=== PATIENT | male | born 1975 | race Caucasian/White ===

== ENCOUNTER 2025-11-22 08:21 | Emergency (ER) | payer OTHER, SELFPAY ==
--- OUTSIDE RECORDS SUMMARY | 2024-06-30 09:53 | XMS_ITS | Continuity of Care Document ---
Author Organization [employer] [place] Address [address] [place] [address] [place] [phone] Phone Care Team Providers Care Abrasive Grader Name Role Phone Philippe Hurd Unavailable Unavailable Procedures Procedure Date Identified as not an unhealthy alcohol u ser Not identified as unhealthy alcohol via screening Identified as not an unhealthy alcohol u ser Not identified as unhealthy alcohol via screening OT Evaluation Low Complexity Therapeutic Activities Hot or Cold Pack Neuromuscular Re-Ed Therapeutic Activities Neuromuscular Re-Ed Therapeutic Exercise Manual Therapy Hot or Cold Pack Therapeutic Activities Hot or Cold Pack Neuromuscular Re-Ed Neuromuscular Re-Ed Therapeutic Activities Manual Therapy Therapeutic Activities Manual Therapy Neuromuscular Re-Ed Therapeutic Activities Hot or Cold Pack Neuromuscular Re-Ed Progress Note Hot or Cold Pack Manual Therapy Therapeutic Exercise Neuromuscular Re-Ed Therapeutic Activities Therapeutic Activities Neuromuscular Re-Ed Hot or Cold Pack Manual Therapy Therapeutic Exercise Neuromuscular Re-Ed Therapeutic Activities Hot or Cold Pack Manual Therapy Therapeutic Activities Manual Therapy Therapeutic Exercise Neuromuscular Re-Ed Therapeutic Activities Manual Therapy Therapeutic Exercise Neuromuscular Re-Ed Electrical Stimulation Therapeutic Activities Neuromuscular Re-Ed Therapeutic Exercise Manual Therapy Electrical Stimulation Hot or Cold Pack Therapeutic Activities Manual Therapy Therapeutic Exercise Neuromuscular Re-Ed Hot or Cold Pack Progress Note Therapeutic Activities Neuromuscular Re-Ed Therapeutic Exercise Manual Therapy Hot or Cold Pack Therapeutic Activities Electrical Stimulation Hot or Cold Pack Manual Therapy Therapeutic Exercise Neuromuscular Re-Ed Electrical Stimulation Therapeutic Exercise Neuromuscular Re-Ed Therapeutic Activities PT Evaluation Moderate Complexity Advance Directives Directive Yes / No Effective Date File Name No Information Encounters Encounter Description Practice Location Reason(s) For Visit Diagnoses Date Provider Providers Copied on Encounter [facility], [place], [place], [id number], tel:[phone] [place] No Information 4 Toy Paez. . [facility] [facility] [address], [place], [place], [id number], tel:[phone] [place] No Information 4 Toy Paez. . [facility], [place], [place], [id number], tel:[phone] [place] No Information 0 2-202 0 Muehl Juan. [address] [facility], [place], [address], [place]. tel:[phone] Referring Provider: Dany Dover, [address] [facility] [address], [place], [address]. tel:[phone] [place] [address], [address] [place], [place] [address], [place], [place], [id number], [place] tel:[phone] [place] No Information 3 0-202 0 Muehl Juan. [address] [facility], [address], [place], [address], [place]. tel:[phone] Referring Provider: Dany Dover, [address] [facility] [address], [place], [address]. tel:[phone] [place] [address], [address] [place], [place] [address], [place], [place], [id number], [place] tel:[phone] [place] No Information 8-202 0 Muehl Juan. [address] [facility], [address], [place], [address], [place]. tel:[phone] Referring Provider: Dany Dover, [address] [facility] [address], [place], [address]. tel:[phone] [place] [address], [address] [place], [place] [address] [address], [place], [place], [id number], [place] tel:[phone] [place] No Information 2 1-202 0 Muehl Juan. [address] [facility], [address], [place], [address], [place]. tel:[phone] Referring Provider: Dany Dover, [address] [facility] [address], [place], [address]. tel:[phone] [place] [address], [facility] [address], [place], [place], [address], [place] tel:[phone] [place] No Information 4-202 0 Muehl Juan. [address] [facility], [address], [place], [address], [place]. tel:[phone] Referring Provider: [place], [address] [facility] [address], [place], [address]. tel:[phone] [place] [address] [address], [place], [place], [id number], tel:[phone] [place] No Information Oct-0 6-202 0 Muehl Juan. [address] [place] [address], [address], [place], [address], [place]. tel:[phone] Referring Provider: [place], [address] [facility] [address], [place], [address]. tel:[phone] [place] [address], [place], [place], [id number], [place] tel:[phone] [place] No Information Oct-0 1-202 0 Muehl Juan. [address] [place] [address], [address], [place], [address], [place]. tel:[phone] Referring Provider: [place], [address] [facility] [address], [place], [address]. tel:[phone] [place] [address] [address], [place], [place], [id number], [place] tel:[phone] [place] No Information Sep-3 0-202 0 Muehl Juan. [address] [place] [address], [address], [place], [address], [place]. tel:[phone] Referring Provider: [place], [address] [facility] [address], [place], [address]. tel:[phone] [place] [address], [address] [place] [address] 300, [place], [place], [address], [place] tel:[phone] [place] No Information Sep-2 2-202 0 Muehl Juan. [address] [facility], [address], [place], [address], [place]. tel:[phone] Referring Provider: [place], [address] [facility] [address], [place], [address]. tel:[phone] [place] [address], [address] [facility] [address], [place], [place], [id number], [place] tel:[phone] [place] No Information Sep-1 7-202 0 Muehl Juan. [address] [facility], [place], [place], [facility], [place]. tel:[phone] Referring Provider: Dany Rainphy SANTHOSH H, [address] [facility] [address], [place], [address]. tel:[phone] [place] [address] [place] [address], [id number], [place] tel:[phone] [place] No Information Sep-1 6-202 0 Muehl Juan. [address] [facility], [address], [place], [facility], [place]. tel:[phone] Referring Provider: Dany Rainphy SANTH[place] H, [address] [facility] [address], [place], [address]. tel:[phone] [place] [address] [address] [facility] [address], [place], [id number], [place] tel:[phone] [place] No Information Sep-1 1-202 0 Dutch Gonzales . Referring Provider: Dany Rainphy SANTHOSH H, [address] [facility] [address], [place], [address]. tel:[phone] [place], [place] [address]e [address], [place], [place], [address], [place] tel:[phone] [place] No Information Sep-0 8-202 0 Muehl Juan. [address] [facility], [address], [place], [address], [place]. tel:[phone] Referring Provider: [place], [address] [facility] [address], [place], [address]. tel:[phone], [place], [place], [address], tel:[phone] [place] No Information Sep-0 0 Rikki Martinez. [address] [facility], [address], [place], [address], . tel:[phone] Referring Provider: Dany Dover, [address] [facility] [address], [place], [address]. tel:[phone], [place], [place], [id number], tel:[phone] [place] No Information Jul-0 0 Munolvia Martinez. [address] [facility], [address], [place], [facility], . tel:[phone] [place]: [place], [address], [place], [address]. tel:[phone] Family History Family Member Type Diagnosis Age At Onset No Information Payers Payer name Insurance type Covered democrat ID Facundo monreal(s) R CI [id number] Social History Type Description Quantity Date Captured Comments Sex Male Smoking Status No Information Chief Complaint And Reason For Visit No Information Reason For Referral Reason For Referral No Information Plan Of Treatment Date Type Action Status Goal Tobacco cessation counseling completed Goal Tobacco Cessation Counseling completed Goal Tobacco Cessation Counseling completed History Of Present Illness Encounter Date Complaint History Of Prese nt Illness No Information Functional Status Date Functional Assessmen t No Information Instructions Date Instruction Additional Infor mation Dietary needs education Related to Overweight Assessments Type Assessment Date No Information Patient Care Teams Name Effective Dates (start - stop) Status Members No Information
--- OUTSIDE RECORDS SUMMARY | 2025-11-22 08:24 | XMS_ITS | Patient Health Record ---
Author Organization [employer] Address [address] [place] [address] [place] [phone] Care Team Providers Care Boot Repairer Name Role Phone Drew Knight MD Primary Care Provider Un available Reason For Referral No Information Plan Of Treatment No Information Insurance Providers Payer Name Payer Address Payer Phone Subscriber Number Group Number Insured Name Patient Relationship to Insured Coverage Start Date Coverage End Date [facility] Benefit Plans - [address] [place], [place] [id number] Jayden Abel Self - patient is the insured
--- OUTSIDE RECORDS SUMMARY | 2025-11-22 08:24 | XMS_ITS | Clinical Summary ---
Author Organization [facility] Address [address] [place] [address] Care Team Providers Care Associate Pastor Name Role Phone Andrews Mack MD Primary Care Provider Allergies Active Allergy Reactions Criticality Noted Date Comments Potassium Other (See comments) Low 03/04/2012 Burning at the infusing site Other reaction(s): redness ti iv site redness ti iv site Medications acetaminophen ER (TYLENOL) 650 mg 8 hr tablet Take 1 tablet (650 mg total) by mouth every 8 (eight) hours as needed for pain Active Active Problems Problem Noted Date Diagnosed Date Complete tear of right ACL 07/20/2020 Overview (07/20/2020): Added automatically from request for surgery [id number] Bucket-handle tear of medial meniscus of right knee as current injury 07/20/2020 Overview (07/20/2020): Added automatically from request for surgery [id number] Rupture of anterior cruciate ligament of right k nee 07/20/2020 Effusion of right knee 07/20/2020 Knee pain 01/30/2011 Surgical History Surgery Date Site/Laterality Comments EXPLORATORY LAPAROTOMY 11/26/1999 - 11/25/2000 COLONOSCOPY UPPER GASTROINTESTINAL ENDOSCOPY HERNIA REPAIR 11/26/1999 - 11/25/2000 ANTERIOR CRUCIATE LIGAMENT REPAIR 11/26/2019 - 0 Medical History Medical History Date Comments Migraines Family History Medical History Relation Name Comments Hypertension Father Diabetes Mother Hypertension Mother Anesthesia problems Neg Hx Relation Name Status Comments Father Mother Social History Tobacco Use Types Packs/Day Years Used Date Smoking Tobacco: Every Day Cigarettes 1 15 Smokeless Tobacco: Never Alcohol Use Standard Drinks/Week Comments Yes 0 (1 standard drink = 0.6 oz pur e alcohol) RARE AUDIT-C Answer Date Recorded Frequency of Alcohol Consumption Not on file 02/25/2025 Q2: How many drinks containi ng alcohol do you have on a typical day when you are drinking? 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 Gender Identity Not on file Sexual Orientation Not on file Occupation Industry Job Start Date Job End Date [employer] Not on file Not on file Not on file Last Filed Vital Signs Vital Sign Reading Time Taken Comments Blood Pressure 130/82 02/25/2025 2:58 PM CDT Pulse 82 02/25/2025 2:58 PM CDT Temperature 37 C (98.6 F) 02/25/2025 2:58 PM CDT Respiratory Rate 16 02/25/2025 2:58 PM CDT Oxygen Saturation 96% 02/25/2025 2:58 PM CDT Inhaled Oxygen Concentration - - Weight 92.7 kg (204 lb 6.4 oz) 02/25/2025 2:58 P M CDT Height 182.9 cm (6') 02/25/2025 2:58 PM CDT Body Mass Index 27.72 02/25/2025 2:58 PM CDT Plan of Treatment Health Maintenance Due Date Last Done Comments Colon Cancer Screening-Colonoscopy 1977 Depression Screening 1977 Regular Well Visit/Exam 18-64 1995 Pneumococcal vaccine <65 (1 of 2 - PCV) 1996 Influenza Vaccine (#1) 2025 DTaP/Tdap/Td Vaccine (2 - Td or Tdap) 12/12/2032 Hepatitis B Screening Completed 06/18/2024 Hepatitis C Screening Completed 06/18/2024 Medical Devices Implanted Type Area Senior Marketing Analyst Device Identifier Shelf Expiration Date Model / Serial / Lot [employer] [id number] Tightrope Acl Right Device Fixation Titanium Uhmwpe Sterile Latex Free - [id number] Implanted:Qty: 1 on 07/23/2020 by Dany Shah IV, MD at [facility] Right: Knee [employer] 11/25/2024 [id number] / / [id number] [employer] [id number] Screw Fastthread Biocomposite Interference 9mm X 30mm - [id number] Implanted:Qty: 1 on 07/23/2020 by Dany Shah IV, MD at [facility] [place] Right: Knee [employer] [id number] / / Procedures Procedure Name Priority Date/Time Associated Diagnosis Comments HEPATITIS C ANTIBODY Routine 06/18/2024 9:17 AM CDT Polyarthralgia High risk medication use from Last 3 Months or Most Recently Relevant to Health Maintenance Results * Hepatitis C antibody Blood (06/18/2024 9:17 AM CDT) Hep C Ab Nonreactive Nonreactive Comment: Interpretive Data Nonreactive: Antibodies to HCV not detected. Does NOT exclude the possibility of recent exposure to HCV. Equivocal: Equivocal for HCV antibodies. Supplemental molecular testing will be automatically performed to determine infection status in accordance with current CDC screening recommendations. Reactive: Positive for HCV antibodies. This may represent current or past HCV infection. Supplemental molecular testing will be automatically performed to determine current infection status in accordance with current CDC screening recommendations. Interpretive data was last revised on 2020. Testing performed by: [facility], [address] [place] [address], [place]., [address] Blood 06/18/2024 9:17 AM CDT 06/18/2024 12:55 PM CDT us Katherine Jimenez NP LAB MICROBIOL OGY - GENERAL ORDERABLES Edited Result - Final ZOILA [facility] [id number] [facility]. Department [place] [address] from Last 3 Months or Most Recently Relevant to Health Maintenance Insurance [facility] H[facility]/PPO Address: [address] [place] [phone] [facility] H[facility]/PPO Address: [address] [address] [place] [address] Advance Directives For more information, please contact: [phone] * Full Code (Latest Code Status on File) Date Activated Date Inactivated Comments 07/23/2020 10:57 AM 07/23/2020 5:36 PM Care Teams Associate Pastor Relationship Specialty Start Date End Date Andrews Mack MD PCP - General Internal Medicine 09/03/18
--- OUTSIDE RECORDS SUMMARY | 2025-11-22 08:24 | XMS_ITS | Clinical Summary ---
Author Organization [facility] Address [address] [place] [phone] Care Team Providers Care Pretzel Twister Name Role Phone Andrews Mack MD Primary Care Provider Allergies No known active allergies Medications neomycin-polymy christianne-dexamethaso ne (MAXITROL) 3.5mg/mL-10,000 unit/mL-0.1 % suspensionIndic ations:Foreign body, eye, right, initial encounter Administer 1-2 Drops in both eyes 4 times daily. 5 mL 0 5 Active Active Problems No known active problems Family History Medical History Relation Name Comments Healthy Daughter Healthy Father Hypertension Mother Healthy Son Relation Name Status Comments Daughter Alive Father Alive Mother Alive Son Alive Social History Tobacco Use Types Packs/Day Years Used Date Smoking Tobacco: Every Day Alcohol Use Standard Drinks/Week Comments No 0 (1 standard drink = 0.6 oz pur e alcohol) Sex and Gender Information Value Date Recorded Sex Assigned at Not on file Legal Sex Male 8:33 AM CDT Gender Identity Not on file Sexual Orientation Not on file Last Filed Vital Signs Vital Sign Reading Time Taken Comments Blood Pressure 133/84 05/26/2015 8:43 AM CDT Pulse 82 05/26/2015 8:43 AM CDT Temperature 37 C (98.6 F) 05/26/2015 8:43 AM CDT Respiratory Rate 18 05/26/2015 8:43 AM CDT Oxygen Saturation 97% 05/26/2015 8:43 AM CDT Inhaled Oxygen Concentration - - Weight 86.2 kg (190 lb) 05/26/2015 8:43 AM CDT Height 180.3 cm (5' 11) 05/26/2015 8:43 AM CDT Body Mass Index 26.5 05/26/2015 8:43 AM CDT Plan of Treatment Health Maintenance Due Date Last Done Comments DTAP/TDAP/TD VACCINES (1 - Tdap) 1996 HEPATITIS B VACCINES (1 of 3 - 19+ 3-dose series) 10/26 COLORECTAL SCREENING 2022 Colorectal Cancer Screening 2022 FIT-DNA Q 3 years 2022 FIT/FOBT Q 1 year 2022 Flex Sig/CT Colonography Q 5 years 2022 INFLUENZA VACCINE (#1) 2025 Insurance Care Teams Pretzel Twister Relationship Specialty Start Date End Date Andrews Mack MD [address] [facility] [address] [place] [address] PCP - General Internal Medicine 05/26/15
--- OUTSIDE RECORDS SUMMARY | 2025-11-22 08:24 | XMS_ITS | Clinical Summary ---
Author Organization [facility] Address [address] [place] [address] Care Team Providers Care Gis Technician Name Role Phone None, Provider MD Primary Care Provider Unavaila ble Allergies No known active allergies Medications naproxen (NAPROSYN) 500 MG tablet 12/18/2023 Active Active Problems No known active problems Social History Tobacco Use Types Packs/Day Years Used Date Smoking Tobacco: Former Cigarettes 1 15 Q uit: 2023 Smokeless Tobacco: Never Tobacco Cessation:Counseling Given: No Alcohol Use Standard Drinks/Week Comments Not Currently 0 (1 standard drink = 0.6 oz pur e alcohol) PHQ-2 Answer Date Recorded Patient Health Questionnaire-2 Score 0 06/19/2024 Sex and Gender Information Value Date Recorded Sex Assigned at Not on file Legal Sex Male 8:29 AM CDT Gender Identity Not on file Sexual Orientation Not on file Last Filed Vital Signs Vital Sign Reading Time Taken Comments Blood Pressure 129/81 06/19/2024 1:39 PM CDT Pulse 89 06/19/2024 1:39 PM CDT Temperature 37.2 C (99 F) 06/19/2024 1:39 PM CDT Respiratory Rate - - Oxygen Saturation 95% 06/19/2024 1:39 PM CDT Inhaled Oxygen Concentration - - Weight 92.7 kg (204 lb 6.4 oz) 06/19/2024 1:39 P M CDT Height 182.9 cm (6') 06/19/2024 1:39 PM CDT Body Mass Index 27.72 06/19/2024 1:39 PM CDT Plan of Treatment Health Maintenance Due Date Last Done Comments Colorectal Cancer Screening Colonoscopy (10 Years) 1977 Annual Physical 1980 Hepatitis C 1995 Hepatitis B Vaccines (1 of 3 - 19+ 3-dose series) 1996 PHQ-2 (Physician [place]) 11/26/2024 06/19/2024 COVID-19 Vaccine (1 - 2024-2 6 season) 2025 Influenza Adult (#1) 2025 DTaP, Tdap and Td Vaccines ( 2 - Td or Tdap) 12/12/2032 12/12/2022 Hepatitis A Vaccines Aged Out No long er eligible based on patient's age to complete this topic Meningococcal B Vaccine Aged Out No l onger eligible based on patient's age to complete this topic Meningococcal Vaccine Aged Out No eufemia mary lou eligible based on patient's age to complete this topic Pneumococcal Vaccine: Pediat rics (0 to 5 Years) and At-Risk Patients (6 to 49 Years) Aged Out No longer eligi ble based on patient's age to complete this topic RSV Immunizations Under 20 Months Aged Out No longer eligible based on patient's age to complete this topic Insurance Care Teams Gis Technician Relationship Specialty Start Date End Date None, Provider, MD PCP - General UNKNOWN PHYSICIAN SPECIALTY 05/05/24
--- OUTSIDE RECORDS SUMMARY | 2025-11-22 08:24 | XMS_ITS | Clinical Summary ---
Author Organization [facility] Address [address] [place] [address] Care Team Providers Care Calender Inspector Name Role Phone Unavailable Primary Care Provider Unavailabl e Source Comments [facility],non-owned Affiliates and Associated Physician Practices is amultiple site organization consisting of ambulatory clinics and hospital sitesin [place], [place], [place] and [place]. This disclosure is being madepursuant to the Care Everywhere program and may not contain all information available regarding this patient. Last updated 18.[facility] Allergies No known active allergies Medications * Be aware that medications may not be up to date on this document. Alwaysverify current medications with the patient. No known medications Active Problems No known active problems Social History Tobacco Use Types Packs/Day Years Used Date Smoking Tobacco: Every Day Cigarettes Smokeless Tobacco: Never Tobacco Cessation:Ready to Q uit: No; Counseling Given: No Alcohol Use Standard Drinks/Week Comments No 0 (1 standard drink = 0.6 oz pur e alcohol) Sex and Gender Information Value Date Recorded Sex Assigned at Not on file Legal Sex Male 10:25 AM CDT Gender Identity Not on file Sexual Orientation Not on file Last Filed Vital Signs Vital Sign Reading Time Taken Comments Blood Pressure 120/78 04/23/2018 10:49 AM CDT Pulse 84 04/23/2018 10:49 AM CDT Temperature 36.6 C (97.9 F) 04/23/2018 10:49 AM CDT Respiratory Rate 18 04/23/2018 10:49 AM CDT Oxygen Saturation - - Inhaled Oxygen Concentration - - Weight - - Height - - Body Mass Index - - Plan of Treatment Health Maintenance Due Date Last Done Comments AISHA (AGES 45-75) - COL ON CA SCREENING 1977 COLON MONITORING 1977 COLONOSCOPY - COLON CA SCREENING 1977 CT COLONOGRAPHY - COLON CA SCREENING 1977 Colorectal Cancer Screening 1977 FIT - COLON CA SCREENING 1977 FLEX SIG - COLON CA SCREENING 1977 LIPID TESTING 1977 HIV SCREENING 1992 HEPATITIS C SCREENING 11/06/1995 DTAP/TDAP/TD VACCINES (1 - Tdap) 1996 HEPATITIS B VACCINE (1 of 3 - 19+ 3-dose series) 1996 PNEUMOCOCCAL VACCINE (1 of 2 - PCV) 1996 DEPRESSION SCREENING 11/26/2024 COVID-19 VACCINE (1 - 2024-2 6 season) 2025 INFLUENZA VACCINE (#1) 2025 ZOSTER VACCINE (1 of 2) 2027 HIB VACCINE Aged Out No longer eligi ble based on patient's age to complete this topic HPV VACCINE Aged Out No longer eligi ble based on patient's age to complete this topic MENINGOCOCCAL (Group B) VACC INE SHARED DECISION-MAKING Aged Out No longer eligibl e based on patient's age to complete this topic MENINGOCOCCAL GROUPS A/C/Y/W VACCINE Aged Out No longer eligible b ased on patient's age to complete this topic Insurance [employer]
[2025-11-22 08:27] VITALS: PULSE 96; RESP 18; TEMP 36.6; O2SAT 99
[2025-11-22 08:38] LABS: Hematocrit 44.4 % (42.0-52.0); Hemoglobin 15.2 g/dL (14.0-18.0); Immature Granulocyte Percent A 0.4 % (0-0.5); Lymphocytes Absolute Auto 1.92 K/mm3 (0.9-3.2); Mean Corpuscular HGB Conc 34.2 g/dl (32-36); Mean Corpuscular Hemoglobin 27.7 pg (26-34); Mean Corpuscular Volume 80.9 fl (80-100); Nucleated Red Blood Cells Absolute Auto 0.000 K/mm3 (0.0-0.012); Nucleated Red Blood Cells Perc 0.0 % (0.0-0.2); Platelet Count Result 413 k/mm3 (150-375); Red Blood Count 5.49 M/mm3 (4.6-6.20); White Blood Count 12.3 K/mm3 (4.5-10.0)
[2025-11-22 08:58] VITALS: BP 131/86
--- NOTE | 2025-11-22 09:00 | ED_ITS ---
HPI - General Adult General Chief complaint: Abdominal Pain Stated complaint: NV, abd pain Time Seen by Provider: 11/22/25 08:52 History of Present Illness HPI narrative: 50-year-old male present to the emergency department for evaluation for intermittent nausea and vomiting. Patient reports he has had prior issues with cyclic nausea and vomiting. Patient does report marijuana use. Patient states symptoms have been worsening over the last few days. Related Data Allergies Allergy/AdvReac Type Severity Reaction Status Date / Time No Known Allergies Allergy Verified 11/22/25 08:36 Review of Systems 2 Review of Systems: All systems reviewed & are unremarkable except as noted in HPI and below PMFSH Surgical History Surgical History History of herniorrhaphy Social History Social History Smoking status: Former smoker Alcohol intake: never Substance use: never Lack of Transportation: No Lack of Food: Never True Current Housing: I Have Housing Concerned About Future Housing: No Difficulty Paying Gas/Electric Bills: No Difficulty Paying for Meds: No Currently Unemployed: YES Education: Trade/Vocational Certificate Difficulty w/ Childcare or Family Care: No Exam 2 Narrative: APPEARANCE: Uncomfortable appearing HEAD: normocephalic, atraumatic. EYES: PERRLA/EOMI, conjunctivae clear. NOSE: Normal no drainage EARS:TMS clear with good light reflex. THROAT: Pharynx clear, no exudate. NECK: Supple. No adenopathy, no masses. RESPIRATORY: Airway patent, respirations nonlabored. Clear to auscultation bilaterally, no rales, rhonchi, wheezing. CARDIOVASCULAR: Regular rate and rhythm without murmurs rubs or gallops. ABDOMINAL: Soft, nontender, nondistended, normal bowel sounds MUSCULOSKELETAL: Moves all extremities. Strength/ROM intact, No edema, No calf tenderness. NEURO: Alert. Cranial nerves II through XII intact. Good gait. Good coordination SKIN: Warm, dry. Normal Color Course Vital Signs Vital signs: Vital Signs Temperature 97.8 F 11/22/25 08:27 Pulse Rate 96 11/22/25 08:27 Respiratory Rate 18 11/22/25 08:27 Pulse Oximetry 99 11/22/25 08:27 Oxygen Delivery Room Air 11/22/25 08:27 Temperature 97.8 F 11/22/25 08:27 Pulse Rate 66 11/22/25 13:14 Respiratory Rate 16 11/22/25 13:14 Blood Pressure 116/66 11/22/25 13:14 Pulse Oximetry 98 11/22/25 13:14 Oxygen Delivery Room Air 11/22/25 08:27 [facility] Narrative Medical decision making narrative: 42-year-old male presents emergency department for evaluation for persistent nausea and vomiting. Patient was treated with Haldol in the assisted help with symptoms but his symptoms returned. Patient was then treated with Reglan and Dilaudid. Patient states this also did help with the symptoms but patient's symptoms worsened again. Patient does complain of worsening abdominal pain. Patient is currently afebrile but does have a leukocytosis of 12.3 hemoglobin of 15.2. No significant abnormalities on his CMP was normal kidney function. UA was negative for infection. Patient was offered a CT scan to further evaluate the etiology of his abdominal pain and patient declined and preferred to sign out AMA. Patient was updated the results of his workup patient was encouraged to return to the emergency department for any worsening symptoms. Differential Diagnosis Differential Diagnosis: Colitis, diverticulitis, cannabinoid hyperemesis syndrome, gastritis, or gastric perforation Lab Data [facility] Lab Attestation statement: I personally reviewed the patient's lab results. 11/22/25 08:34 11/22/25 08:33 Labs: Lab Results 11/22/25 11/22/25 11/22/25 Range/Units 08:33 08:34 11:42 WBC 12.3 H (4.5-10.0) K/mm3 RBC 5.49 (4.6-6.20) M/mm3 Hgb 15.2 (14.0-18.0) g/dL Hct 44.4 (42.0-52.0) % MCV 80.9 (80-100) fl MCH 27.7 (26-34) pg MCHC 34.2 (32-36) g/dl RDW 14.1 (11.5-14.5) % Plt Count 413 H (150-375) k/mm3 MPV 8.7 (7.4-10.4) fl Immature Gran % (Auto) 0.4 (0-0.5) % Neut % (Auto) 74.4 H (45.5-73.1) % Lymph % (Auto) 15.6 L (18.3-44.2) % [place] % (Auto) 8.4 (2.6-8.5) % Eos % (Auto) 0.7 (0-4.4) % Baso % (Auto) 0.5 (0.2-1.2) % Lymph # (Auto) 1.92 (0.9-3.2) K/mm3 [place] # (Auto) 1.0 H (0.1-0.6) K/mm3 Eos # (Auto) 0.1 (0-0.3) K/mm3 Baso # (Auto) 0.1 (0.0-0.1) K/mm3 Abs Immat Gran (auto) 0.05 H (0.00-0.031) K/mm3 Absolute Neuts (auto) 9.2 H (1.3-6.7) K/mm3 Absolute Nucleated RBC 0.000 (0.0-0.012) K/mm3 Nucleated RBC % 0.0 (0.0-0.2) % Sodium 138 (137-145) mmol/L Potassium 4.0 (3.4-5.0) mmol/L Chloride 102 (98-107) mmol/L Carbon Dioxide 25 (22-30) mmol/L Anion Gap 11 (4-12) mmol/L BUN 27 H (9-20) mg/dL Creatinine 1.14 (0.7-1.3) mg/dL Estim Creat Clear Calc 77 ml/min Estimated GFR > 60 (59 - ) Glucose 142 H (65-110) mg/dL Calcium 10.0 (8.4-10.2) mg/dL Total Bilirubin 0.8 (0.2-1.3) mg/dL AST 38 (17-59) U/L ALT 48 (6-50) U/L Alkaline Phosphatase 65 (38-126) U/L Total Protein 9.6 H (6.3-8.2) g/dL Albumin 5.0 (3.5-5.1) g/dL Lipase 79 (23-300) U/L Urine Color Yellow (Yellow) Urine Appearance Cloudy H (Clear) Urine pH 6.0 (5.0-9.0) Ur Specific [place] 1.032 (1.001-1.035) Urine Protein 1+ H (Negative) mg/dL Urine Glucose (UA) Negative (Negative) mg/dL Urine Ketones Trace H (Negative) mg/dL Ur Blood (Man) Negative (Negative) Urine Nitrate Negative (Negative) Urine Bilirubin Negative (Negative) Urine Urobilinogen 0.2 (<2.0) mg/dL Leukocyte Esterase Rfl Negative (Negative) HERIBERTO/UL Urine RBC 0-2 (0-2) /hpf Urine WBC 0-5 (0-3) /hpf Ur Squamous Epith Cells None seen (Few) /hpf Urine Bacteria None seen /hpf Urine Casts 3-5 Discharge Plan Discharge Clinical Impression: Abdominal pain, N&V (nausea and vomiting) Patient Disposition: Home Condition: Stable Instructions: Antibiotic Form, Abdominal Pain (ED) Additional Instructions: Zofran for nausea control. Reglan for additional nausea control. Avoid THC. Have close follow-up with GI. Continue to educate yourself on cannabinoid hyperemesis syndrome. You were offered a CT scan but declined. If you have any worsening symptoms then please call or return to the emergency department. Patient Language: Arabic Prescriptions: New ondansetron 4 mg tablet,disintegrating 4 mg PO Q8H PRN (Reason: nausea and vomiting) Qty: 14 0RF metoclopramide HCl [Reglan] 10 mg tablet 10 mg PO Q6H PRN (Reason: nausea and vomiting) Qty: 14 0RF Follow-up/Referrals: Melly Catherine DO [Primary Care Provider, [facility]]
[2025-11-22 09:06] LABS: Alanine Aminotransferase 48 U/L (6-50); Albumin Level 5.0 g/dL (3.5-5.1); Alkaline Phosphatase 65 U/L (38-126); Anion Gap 11 mmol/L (4-12); Aspartate Amino Transferase 38 U/L (17-59); Bilirubin,Total 0.8 mg/dL (0.2-1.3); Blood Urea Nitrogen 27 mg/dL (9-20); Calcium 10.0 mg/dL (8.4-10.2); Carbon Dioxide 25 mmol/L (22-30); Chloride 102 mmol/L (98-107); Estimated CRCL calculation 77 ml/min; Estimated Glomerular Filt Rate > 60; Glucose 142 mg/dL (65-110); Lipase 79 U/L (23-300); Potassium 4.0 mmol/L (3.4-5.0); Sodium 138 mmol/L (137-145); Total Protein 9.6 g/dL (6.3-8.2)
[2025-11-22] MEDS: LACTATED RINGERS 1,000 ML 999 ML IV CONT (09:06)
[2025-11-22] MEDS: PANTOPRAZOLE SODIUM IV 40 MG VIAL IV PUSH (09:07)
[2025-11-22] MEDS: HALOPERIDOL LACTATE 5 MG/ML VIAL IM (09:07)
[2025-11-22 09:30] VITALS: BP 149/73; PULSE 64; RESP 16; O2SAT 100
[2025-11-22] MEDS: HYDROmorphone HCL INJ (*CRX) 1 MG/ML SYR 0.5 MG IV PUSH (10:20)
[2025-11-22 11:51] LABS: Add Urine Microscopic? YES; Appearance Urine Cloudy (Clear); Glucose Urine UA Negative (Negative); Leukocyte Esterase Ur Negative LEU/UL (Negative); Nitrate Urine Negative (Negative); Specific Grav Ur 1.032 (1.001-1.035)
--- NOTE | 2025-11-22 13:00 | PC.NURSE ---
Pt refusing CT scan. Visitor at bedside states she is going to take him to [facility]. States he has had these problems for years and nobody can figure out what is wrong.
[2025-11-22 13:14] VITALS: BP 116/66; PULSE 66; RESP 16; O2SAT 98
== END 2025-11-22 13:18 | disposition home or self-care (01) ==
PROVIDERS: Emergency Provider Emergency Medicine; PCP Family Medicine
DX: R11.2 Nausea with vomiting, unspecified (principal); R10.9 Unspecified abdominal pain; F12.90 Cannabis use, unspecified, uncomplicated; Z87.891 Personal history of nicotine dependence
CPT/HCPCS: 36415; 80053; 81001; 83690; 85025; 96361; 96372; 96374; 96375; 99284; J1171; J1630; J2470; J7120